=== PATIENT | female | born 1950 | race Caucasian/White ===

== ENCOUNTER 2018-05-19 18:33 | Emergency (ER) | payer MEDICARE, SELFPAY ==
[2018-05-19 18:37] VITALS: BP 123/86; PULSE 79; RESP 18; TEMP 36.1; O2SAT 97; BMI 25.4
--- NOTE | 2018-05-19 18:50 | DI.RAD.S_ITS ---
PROCEDURE: XR CHEST 1V INDICATIONS: chest pain TECHNIQUE: One view of the chest was acquired. COMPARISON: None. FINDINGS: Surgical changes and devices: None. Lungs and pleura: No pleural effusions or pneumothorax. Lungs are clear. Mediastinum: Mildly tortuous thoracic aorta is noted. Heart size is mildly enlarged. Bones and chest wall: No suspicious bony lesions. Overlying soft tissues appear unremarkable. IMPRESSION: No acute cardiopulmonary pathology. Dictated by: Ron Patiño M.D. on 05/19/2018 at 19:03 Approved by: Ron Patiño M.D. on 05/19/2018 at 19:04
--- NOTE | 2018-05-19 19:01 | ED_ITS ---
HPI - Chest Pain General Chief Complaint: Chest Pain Stated Complaint: PRESSURE IN CHEST JAW FELT DIFFRENT Time Seen by Provider: 05/19/18 18:59 Source: patient Mode of arrival: ambulatory Limitations: no limitations History of Present Illness HPI narrative: The patient was working on a computer about 2:30 p.m. today when she developed central sternal chest tightness that radiated up to her throat. She felt like someone was standing on her chest. She has no history of CAD or GERD. She took an [place] and lie down in bed. Symptoms resolved after about 30 min. Upon arrival she has no chest pain, or dyspnea. She had no palpitations at that time. She has no history of CAD. She had a cardiology evaluation August 2017 that was apparently normal. She has no history of arrhythmia. She denies hypertension, hyperlipidemia or diabetes. She is not a smoker. She has not been ill. Related Data Home Medications Medication Instructions Recorded Confirmed amitriptyline 25 mg PO BID 05/19/18 05/19/18 sumatriptan succinate [Imitrex] 25 mg PO Q2-4H PRN 05/19/18 05/19/18 topiramate [Topamax] 25 mg PO DAILY 05/19/18 05/19/18 verapamil 40 mg PO BID 05/19/18 05/19/18 Allergies Allergy/AdvReac Type Severity Reaction Status Date / Time No Known Drug Allergies Allergy Verified 05/19/18 18:42 Review of Systems Review of Systems All systems reviewed & are unremarkable except as noted in HPI and below Constitutional Denies chills, Denies fever(s), Denies lethargy and Denies weakness ENT Ears, Nose, Mouth, and Throat: Denies sore throat and Denies throat swelling Cardiovascular Reports chest pain, Denies diaphoresis, Denies syncope, Denies edema, Denies lightheadedness, Denies palpitations and Denies dyspnea Respiratory Denies cough, Denies dyspnea and Denies wheezing Gastrointestinal Gastrointestinal: Denies abdominal pain, Denies change in bowel habits, Denies diarrhea, Denies nausea and Denies vomiting Musculoskeletal Denies back pain, Denies muscle weakness, Denies numbness and Denies tingling Integumentary/Breasts Denies erythema, Denies rash and Denies wounds Neurologic Denies syncope, Denies numbness, Denies tingling and Denies weakness Endocrine Denies palpitations Allergic/Immunologic Denies throat swelling and Denies wheezing PFSH Medical History Migraine headache (Acute) Social History Smoking Status: Never smoker Exam Initial Vital Signs Initial Vital Signs: Vital Signs Temperature 97.0 F L 05/19/18 18:37 Pulse Rate 79 05/19/18 18:37 Respiratory Rate 18 05/19/18 18:37 Blood Pressure 123/86 05/19/18 18:37 Pulse Oximetry 97 05/19/18 18:37 Const General: cooperative, healthy appearing, comfortable and well developed Nutritional Appearance: well nourished Orientation: alert, awake and oriented x3 HENMT Head: normocephalic and atraumatic Mouth: oral mucosae normal and moist mucous membranes Throat: posterior oropharynx normal Eyes Conjunctivae: conjunctivae normal Neck Neck: No JVD Chest Chest: normal palpation of entire chest wall Resp Effort & Inspection: normal respiratory effort, able to speak in complete sentences, no respiratory distress and no use of accessory muscles Auscultation: clear to auscultation bilaterally, no rales, no rhonchi and no wheezes Cardio Rate: regular rate Rhythm: regular rhythm Heart Sounds: S1 normal, S2 normal, no click, no gallops, no murmurs and no rubs Pulses: normal peripheral pulses GI Inspection: non-distended Palpation: soft, no hepatosplenomegaly, No guarding, No pulsatile mass and No tender Auscultation: normal bowel sounds Back/Spine/Pelvis Back: normal to inspection and No back tenderness Skin General: no rashes or lesions noted and No erythema Neuro General: alert, oriented x3, gait normal and no focal motor deficits Speech: speech normal Extrem General: full ROM, no clubbing, cyanosis or edema, no pedal edema and no calf tenderness Psych Appearance: well kempt Mental Status: mental status grossly normal Attitude: cooperative Thought Content: normal and suicidality Judgment: judgment good Course Orders Ordered: ED Orders 05/19/18 18:50 XR chest 1V Stat EKG-12 Lead Stat 05/19/18 19:05 Complete Blood Count AUTO DIFF Stat Comprehensive Metabolic Panel Stat D Dimer Stat Lipase Stat Partial Thromboplastin Time Stat Prothrombin Time INR Stat Troponin & CK Cardiac Panel Stat Discontinued Medications Aspirin (Aspirin Chew) 324 mg PO NOW ONE Stop: 05/19/18 19:11 Last Admin: 05/19/18 19:13 Dose: 324 mg Vital Signs - 8 hr 05/19/18 18:37 05/19/18 19:39 05/19/18 20:00 Temperature 97.0 F L Pulse Rate 79 70 73 Respiratory Rate 18 17 12 Blood Pressure 123/86 Blood Pressure [Left Arm] 123/85 121/97 H Pulse Oximetry 97 100 100 05/19/18 20:26 Temperature Pulse Rate 76 Respiratory Rate 16 Blood Pressure 121/97 H Blood Pressure [Left Arm] Pulse Oximetry 99 MDM - Chest Pain Lab Data Attestation: I reviewed the patient's lab results. Result diagrams: 05/19/18 19:05 05/19/18 19:05 Lab Results 05/19/18 05/19/18 05/19/18 Range/Units 19:05 19:05 19:05 WBC 6.1 (4.5-11.0) X10^3/uL RBC 4.90 (4.0-5.2) X10^6/uL Hgb 14.9 (12.0-16.0) g/dL Hct 43.0 (36-46) % MCV 87.9 (80-100) fL MCH 30.3 (26-34) PG MCHC 34.5 (30-36) % RDW 12.8 (11.6-14.8) % Plt Count 155 (150-400) X10^3/uL Neut % (Auto) 66.4 (50-75) % Lymph % (Auto) 25.7 (25-40) % [place] % (Auto) 6.0 (3-14) % Eos % (Auto) 1.3 L (2-4) % Baso % (Auto) 0.6 (0-2) % Neut # (Auto) 4000 (8827-1999) /uL PT 12.0 (10.1-12.7) SECONDS INR 1.1 (0.9-1.3) APTT 31 (26.4-36.2) SECONDS D-Dimer < 200 (<230) ng/mL Sodium 146 H (137-145) mmol/L Potassium 3.5 (3.4-5.1) mmol/L Chloride 107 (98-107) mmol/L Carbon Dioxide 29 (22-32) mmol/L BUN 20 H (7-17) mg/dL Creatinine 0.80 (0.52-1.04) mg/dL Estimated GFR > 60.0 (>60) mL/min BUN/Creatinine Ratio 25.0 H (6-22) Glucose 87 (80-110) mg/dL Calcium 9.3 (8.4-10.2) mg/dL Total Bilirubin 0.5 (0.2-1.3) mg/dL AST 28 (14-36) IU/L ALT 31 (9-52) IU/L Alkaline Phosphatase 73 (38-126) U/L Total Creatine Kinase 37 (30-135) U/L Troponin I < 0.012 (0.01-0.034) ng/mL Total Protein 7.3 (6.3-8.2) g/dL Albumin 4.5 (3.5-5.0) g/dL Globulin 2.8 (1.7-4.1) g/dL Albumin/Globulin Ratio 1.6 (1.0-2.8) Lipase 39 (23-300) U/L 05/19/18 Range/Units 19:05 WBC (4.5-11.0) X10^3/uL RBC (4.0-5.2) X10^6/uL Hgb (12.0-16.0) g/dL Hct (36-46) % MCV (80-100) fL MCH (26-34) PG MCHC (30-36) % RDW (11.6-14.8) % Plt Count (150-400) X10^3/uL Neut % (Auto) (50-75) % Lymph % (Auto) (25-40) % [place] % (Auto) (3-14) % Eos % (Auto) (2-4) % Baso % (Auto) (0-2) % Neut # (Auto) (8760-0682) /uL PT (10.1-12.7) SECONDS INR (0.9-1.3) APTT (26.4-36.2) SECONDS D-Dimer Cancelled (<230) ng/mL Sodium (137-145) mmol/L Potassium (3.4-5.1) mmol/L Chloride (98-107) mmol/L Carbon Dioxide (22-32) mmol/L BUN (7-17) mg/dL Creatinine (0.52-1.04) mg/dL Estimated GFR (>60) mL/min BUN/Creatinine Ratio (6-22) Glucose (80-110) mg/dL Calcium (8.4-10.2) mg/dL Total Bilirubin (0.2-1.3) mg/dL AST (14-36) IU/L ALT (9-52) IU/L Alkaline Phosphatase (38-126) U/L Total Creatine Kinase (30-135) U/L Troponin I (0.01-0.034) ng/mL Total Protein (6.3-8.2) g/dL Albumin (3.5-5.0) g/dL Globulin (1.7-4.1) g/dL Albumin/Globulin Ratio (1.0-2.8) Lipase (23-300) U/L Imaging Data Chest x-ray: Attestation: I personally reviewed and interpreted this imaging study as follows: Radiologist's impression: Normal. ECG Data Attestation: I personally reviewed and interpreted this ECG as follows: (Normal sinus rhythm rate 77 bpm. Incomplete RBBB. Borderline left axis deviation. No ectopy. Normal intervals. No acute ST T wave changes.) MDM Narrative Medical decision making narrative: The patient has been asymptomatic since arrival. There is no evidence of an acute cardiac event, although her history is concerning. She will be started on aspirin and referred to Cardiology. Discharge Plan Departure Patient Disposition: Home Clinical Impression: Chest pain Discharge Date/Time: 05/19/18 20:31 Interventions: ED Discharge Assessment Last Done: 05/19/18 20:26 Instructions: DI for Chest Pain Activity Restrictions/Additional Instructions: Take baby aspirin, 1 daily. I will give you contact information for Dr. Kirkland , cardiology. Call for an appointment. Be sure you notify his office to obtain her prior cardiology records. Return here for worsening chest pain, problems breathing, or feeling weak and dizzy Prescriptions: No Action verapamil 40 mg Tablet 40 mg PO BID RF: 0 topiramate [Topamax] 25 mg Tablet 25 mg PO DAILY RF: 0 amitriptyline 25 mg Tablet 25 mg PO BID RF: 0 sumatriptan succinate [Imitrex] 25 mg Tablet 25 mg PO Q2-4H PRN (Reason: Headache) RF: 0 Referrals: Tim Kirkland MD [Physician] -
[2018-05-19 19:13] LABS: Add Manual Diff / Slide Review NO; Basophils Percent Auto 0.6 % (0-2); Eosinophils Percent Auto 1.3 % (2-4); Hemoglobin 14.9 g/dL (12.0-16.0); Lymphocytes Percent Auto 25.7 % (25-40); Mean Corpuscular HGB Conc 34.5 % (30-36); Mean Corpuscular Hemoglobin 30.3 PG (26-34); Mean Corpuscular Volume 87.9 fL (80-100); Neutrophils Absolute Auto 4000 /uL (3000-5900); Neutrophils Percent Auto 66.4 % (50-75); Platelet Count 155 X10^3/uL (150-400); Red Cell Distribution Width 12.8 % (11.6-14.8); White Blood Cell Count 6.1 X10^3/uL (4.5-11.0)
[2018-05-19] MEDS: ASPIRIN 81 MG TAB 324 MG PO (19:13)
[2018-05-19 19:24] LABS: INR 1.1 (0.9-1.3)
[2018-05-19 19:25] LABS: Alanine Aminotransferase 31 IU/L (9-52); Albumin 4.5 g/dL (3.5-5.0); Albumin Globulin Ratio 1.6 (1.0-2.8); Alkaline Phosphatase 73 U/L (38-126); Aspartate Aminotransferase 28 IU/L (14-36); Bilirubin Total 0.5 mg/dL (0.2-1.3); Blood Urea Nitrogen 20 mg/dL (7-17); Calcium 9.3 mg/dL (8.4-10.2); Carbon Dioxide 29 mmol/L (22-32); Chloride 107 mmol/L (98-107); Creatine Kinase 37 U/L (30-135); Estimated Glomerular Filt Rate > 60.0 mL/min (>60); Globulin 2.8 g/dL (1.7-4.1); Glucose 87 mg/dL (80-110); HEMOLYSIS < 15 (0-50); Lipase 39 U/L (23-300); Potassium 3.5 mmol/L (3.4-5.1); Sodium 146 mmol/L (137-145); Total Protein 7.3 g/dL (6.3-8.2)
[2018-05-19 19:27] LABS: D Dimer < 200 ng/mL (<230); PTT Partial Thromboplastin Tim 31 SECONDS (26.4-36.2)
[2018-05-19 19:36] LABS: Troponin I < 0.012 ng/mL (0.01-0.034)
[2018-05-19 19:39] VITALS: BP 123/85; PULSE 70; RESP 17; O2SAT 100
[2018-05-19 20:00] VITALS: BP 121/97; PULSE 73; RESP 12; O2SAT 100
[2018-05-19 20:26] VITALS: BP 121/97; PULSE 76; RESP 16; O2SAT 99
== END 2018-05-19 20:31 | disposition home or self-care (01) ==
PROVIDERS: Emergency Provider Emergency Medicine
DX: R07.89 Other chest pain (principal)
CPT/HCPCS: 36591; 71045; 80053; 82550; 82553; 83690; 84484; 85025; 85379; 85610; 85730; 93005; 93010; 99282; 99285

== ENCOUNTER → 2018-10-04 14:53 | Outpatient (CLI) | payer MEDICARE, SELFPAY ==
--- NOTE | 2018-10-04 | DI.ECHO.S_ITS ---
[facility]---------+ [facility] +---------+ : : [address] [place] [address] : : : : [id number] : : : : Phone: [phone]+ Echocardiogram Report + + :Name: MARYAM YAO Study Date: 10/04/2018 Height: 64 in : :[facility] Weight: 152 lb : : Gender: Female BSA: 1.7 m2 : :: 1950 Age: 68 yrs BP: 128/86 mmHg: :Reason For Study: Mitral Valve- Prolapse : :Ordering Physician: Tim : :Isael Performed By: Carol Manzano : :Referring: Laura Cagle : + + Interpretation Summary The left ventricle is normal in size. The ejection fraction is estimated to be 60-65%. The right ventricle is normal in size and function. There is borderline bileaflets mitral valve prolapse. There is mild to moderate mitral regurgitation. Procedure: A two-dimensional transthoracic echocardiogram with color flow and Doppler was performed. The study quality was technically adequate. There is no prior echocardiogram noted for this patient. The patient was in normal sinus rhythm during the exam. Left Ventricle: There is mild proximal septal thickening noted. The left ventricle is normal in size. There is normal left ventricular wall thickness. There is no echo evidence for significant left ventricular outflow tract obstruction. There is no ventricular septal defect visualized. There is no thrombus. The ejection fraction is estimated to be 60-65%. There are no focal wall motion abnormalities. Diastolic parameters suggest a relaxation abnormality of the left ventricle, consistent with probable normal filling pressures. Right Ventricle: The right ventricle is normal in size and function. Atria: Both atria are normal in size. There is no Doppler evidence for an interatrial shunt. Mitral Valve: The mitral valve leaflets appear mildly thickened, but open well. There is borderline mitral valve prolapse. There is prolapse of the anterior mitral valve leaflet. There is prolapse of the posterior mitral valve leaflet(s). There is mild to moderate mitral regurgitation. There are multiple regurgitant jets present. Aortic Valve: The aortic valve is trileaflet. The aortic valve opens well. There is no aortic valve stenosis. There is trace aortic regurgitation. Tricuspid Valve: The tricuspid valve is normal in structure and function. The right ventricular systolic pressure is estimated to be at least 20 mmHg based on an estimated right atrial pressure of 3 mm Hg. There is trace tricuspid regurgitation. Pulmonic Valve: The pulmonic valve leaflets are thin and pliable; valve motion is normal. There is mild pulmonic regurgitation. Great Vessels: The aortic root is normal size. The ascending aorta is mildly enlarged. The aortic arch is mildly enlarged. The IVC is of normal diameter and collapses greater than 50% with a sniff. This suggests a low right atrial pressure of 3 mm Hg. Pericardium/ Pleura There is a trivial pericardial effusion noted. There is an anterior echo-free space consistent with a fat pad. There are no echocardiographic indications of cardiac tamponade. MMode/2D Measurements & Calculations LVIDd: 4.2 cm LVOT diam: 1.9 cm LVIDs: 2.4 cm Ao root diam: 3.4 cm FS: 43.9 % Aortic Jxn: 3.0 cm IVSd: 1.0 cm asc Aorta Diam: 3.5 cm LVPWd: 0.89 cm Ao Arch Diam (Prox Trans): 3.3 cm LV paz. diameter/BSA (cm/m^2): 2.4 LV sys. diameter/BSA (cm/m^2): 1.4 LA A2 area: 17.7 cm2 RA long axis: 4.4 cm LA A4 area: 17.4 cm2 RA area: 13.5 cm2 LA length (vol): 4.8 cm RA vol: 35.7 ml LA vol: 54.0 ml RA : 20.5 ml/m2 LA vol index: 31.0 ml/m2 IVC diam: 1.2 cm RVD1 (basal): 3.6 cm RVD2 (mid): 2.2 cm TAPSE: 2.5 cm Doppler Measurements & Calculations Ao V2 max: 142.1 cm/sec LVOT Max [place]: 98.2 cm/sec Ao V2 mean: 105.6 cm/sec LV V1 max P.9 mmHg Ao max P.1 mmHg LV V1 VTI: 21.5 cm Ao mean P.8 mmHg BRONSON(I,D): 2.0 cm2 Ao V2 VTI: 29.7 cm BRONSON(V,D): 1.9 cm2 sev ratio: 0.73 BRONSON indexed to BSA (cm^2/m^2): 1.2 AI P1/2t: 728.6 msec AI dec slope: 142.6 cm/sec2 MV E max wayne: 60.9 cm/sec TR max wayne: 204.7 cm/sec MV A max wayne: 91.0 cm/sec TR max P.8 mmHg MV E/A: 0.67 PA V2 max: 52.4 cm/sec Med Peak E' Wayne: 4.8 cm/sec PA V2 mean: 39.8 cm/sec E/E' med: 12.6 PA mean P.69 mmHg Lat Peak E' Wayne: 3.9 cm/sec PA Accel Time: 0.14 sec E/E' lat: 15.6 E/e' average: 14.1 MV dec time: 0.32 sec MV P1/2t: 93.0 msec MV P1/2t max wayne: 61.0 cm/sec SV(LVOT): 60.3 ml MVA(P1/2t): 2.4 cm2 Reading Physician:BRANDON
== END ==
PROVIDERS: PCP Nurse Practitioner Family; Visit Provider Internal Medicine Cardiovascular Disease
DX: I34.1 Nonrheumatic mitral (valve) prolapse (principal); I34.0 Nonrheumatic mitral (valve) insufficiency
CPT/HCPCS: 93306

== ENCOUNTER → 2019-06-18 11:03 | Outpatient (CLI) | payer MEDICARE, SELFPAY | PROVIDERS: PCP Nurse Practitioner Family; Visit Provider Obstetrics & Gynecology | DX: R30.0 Dysuria (principal) | CPT/HCPCS: 87077; 87086; 87186 ==

== ENCOUNTER → 2019-10-02 12:26 | Outpatient (CLI) | payer MEDICARE, SELFPAY ==
[2019-10-03 14:44] LABS: Strep Grp B PCR NEG for Grp B Strep
== END ==
PROVIDERS: PCP Nurse Practitioner Family; Visit Provider Obstetrics & Gynecology
DX: N89.8 Other specified noninflammatory disorders of vagina (principal); N95.1 Menopausal and female climacteric states
CPT/HCPCS: 87070; 87205; 87480; 87510; 87653; 87660

== ENCOUNTER → 2019-11-15 13:35 | Outpatient (CLI) | payer MEDICARE, SELFPAY ==
--- NOTE | 2019-11-15 | DI.US.S_ITS ---
PROCEDURE: US SOFT TISSUE HEAD AND NECK INDICATIONS: ENLARGED LYMPH NODES TECHNIQUE: Real-time scanning was performed of the neck region of interest, with image documentation. COMPARISON: None. FINDINGS: Palpable abnormality corresponds to a solid, mildly hypoechoic mass adjacent to the carotid artery measuring 1.1 x 0.6 x 0.9 cm. No definite normal lymph node seen. IMPRESSION: Solid mass adjacent to the carotid artery corresponding to the palpable abnormality which does not have appearance suggesting a normal lymph node. Carotid body tumor cannot be excluded. Recommend contrast enhanced neck CT for further assessment. Dictated by: Kev BELL Interpreted: Lady Guillermo MD on 11/15/2019 at 16:54 Approved by: Bruce Rodriguez M.D. on 11/18/2019 at 15:58
== END ==
PROVIDERS: PCP Family Medicine; Referring Provider Family Medicine; Visit Provider Family Medicine
DX: R59.9 Enlarged lymph nodes, unspecified (principal)
CPT/HCPCS: 76536

== ENCOUNTER → 2020-02-12 10:23 | Outpatient (CLI) | payer MEDICARE, SELFPAY ==
--- NOTE | 2020-02-12 | DI.CT.S_ITS ---
PROCEDURE: CT SOFT TISSUE NECK W CON INDICATIONS: Localized swelling, mass and lump, neck TECHNIQUE: After the administration of intravenous contrast, 3.0 mm axial sections acquired from the sella to the aortic arch. Additional oblique axial 3.0 mm sections acquired through the pharynx. 3 mm thick coronal and sagittal reformats were generated. For radiation dose reduction, the following was used: automated exposure control. COMPARISON: [facility], SOFT TISSUE HEAD AND NECK, 11/15/2019, 14:08. FINDINGS: Image quality: Excellent. Lymph nodes: No enlarged lymph nodes seen throughout the neck. Vessels: Visualized vasculature appears patent. Neck spaces: Scrutiny is given to the left carotid bifurcation, and the site of the previously seen abnormality. No CT correlate is found. No other masses can be seen within this region. The oropharynx, nasopharynx, and pharynx demonstrate no mucosal lesions. The vocal cords, false vocal cords, pyriform sinuses, epiglottis, vallecula, and tongue base all appear normal. Extramucosal spaces appear unremarkable. Glands: The parotid and submandibular glands appear normal. Thyroid gland demonstrates no significant CT abnormality. Miscellaneous: Visualized brain and orbits appear normal. Lung apices appear clear. Superficial soft tissues appear normal. Bones: No suspicious bony lesions. Visualized sinuses and mastoids appear unremarkable. Degenerative changes are seen, which are most prominent at the C3-C4 level. IMPRESSION: No left carotid bifurcation lesion can be seen. No other masses are seen within this region. Dictated by: Melo Funez M.D. on 02/12/2020 at 10:28 Approved by: Melo Funez M.D. on 02/12/2020 at 10:31
== END ==
PROVIDERS: PCP Family Medicine; Referring Provider Family Medicine; Visit Provider Family Medicine
DX: R22.1 Localized swelling, mass and lump, neck (principal)
CPT/HCPCS: 70491; Q9967

== ENCOUNTER → 2020-09-22 09:01 | Outpatient (CLI) | payer MEDICARE, SELFPAY ==
--- NOTE | 2020-09-22 | DI.ECHO.S_ITS ---
[place] +---------+ [facility] +---------+ : : [address] : [place] [address] : : : : [id number] : : : : Phone: [phone]+ Echocardiogram Report + + :Name: MARYAM YAO Study Date: 09/22/2020 Height: 64 in : :[facility] Weight: 147 lb : : Gender: Female BSA: 1.7 m2 : :: 1950 Age: 70 yrs BP: 136/96 mmHg: :Reason For Study: MITRAL VALVE PROLAPSE : :Ordering Physician: NANETTE, : :AMY Performed By: Danielle Sandoval : :Referring: AMY FITZPATRICK : + + Interpretation Summary The left ventricle is normal in size. The ejection fraction is estimated to be 60-65%. There has been no significant change in LVEF since the previous exam. The right ventricle is normal in size and function. There is borderline mitral valve prolapse. There is prolapse of the anterior mitral valve leaflet. There is prolapse of the posterior mitral valve leaflet (s). There is mild to moderate mitral regurgitation. Compared to the prior echo study, there has been no change in the severity of mitral regurgitation. The aortic arch is mildly enlarged. 3.5 cm in diameter. Previously it was 3.3 cm. The IVC is of normal diameter and collapses greater than 50% with a sniff. This suggests a low right atrial pressure of 3 mm Hg. Procedure: A two-dimensional transthoracic echocardiogram with color flow and Doppler was performed. The study quality was technically adequate. Comparison is made with the echocardiogram of 10/04/2018. The patient was in normal sinus rhythm during the exam. Left Ventricle: The left ventricle is normal in size. Proximal septal thickening is noted. There is no echo evidence for significant left ventricular outflow tract obstruction. There is no thrombus. The ejection fraction is estimated to be 60-65%. There has been no significant change since the previous exam. There are no focal wall motion abnormalities. Diastolic parameters suggest a relaxation abnormality of the left ventricle, consistent with probable normal filling pressures. Right Ventricle: The right ventricle is normal in size and function. Atria: Both atria are normal in size. Both atria have remained unchanged in size since the prior echo exam. There is no Doppler evidence for an interatrial shunt. Mitral Valve: There is borderline mitral valve prolapse. There is prolapse of the anterior mitral valve leaflet. There is prolapse of the posterior mitral valve leaflet(s). There is mild to moderate mitral regurgitation. Compared to the prior echo study, there has been no change in the severity of mitral regurgitation. Aortic Valve: The aortic valve is trileaflet. The aortic valve opens well. There is no aortic valve stenosis. There is trace aortic regurgitation. Tricuspid Valve: The tricuspid valve is normal in structure and function. There is trace tricuspid regurgitation. The right ventricular systolic pressure is estimated to be at least 22 mmHg based on an estimated right atrial pressure of 3 mm Hg. Pulmonic Valve: The pulmonic valve leaflets are thin and pliable; valve motion is normal. There is trace pulmonic regurgitation. Great Vessels: The aortic root is normal size. The ascending aorta is at the upper limits of normal in size. The aortic arch is mildly enlarged. The IVC is of normal diameter and collapses greater than 50% with a sniff. This suggests a low right atrial pressure of 3 mm Hg. Pericardium/ Pleura There is an anterior echo-free space consistent with a fat pad. There is no pericardial effusion. There is no pleural effusion. MMode/2D Measurements & Calculations LVIDd: 4.2 cm LVOT diam: 2.0 cm LVIDs: 2.9 cm Ao root diam: 3.3 cm FS: 30.6 % asc Aorta Diam: 3.4 cm EPSS: 1.5 cm Ao Arch Diam (Prox Trans): 3.5 cm IVSd: 0.68 cm LVPWd: 0.94 cm LV paz. diameter/BSA (cm/m^2): 2.4 LV sys. diameter/BSA (cm/m^2): 1.7 LA A2 area: 16.6 cm2 RA long axis: 4.8 cm LA A4 area: 19.5 cm2 RA area: 17.1 cm2 LA length (vol): 5.7 cm RA vol: 51.5 ml LA vol: 48.2 ml RA : 30.0 ml/m2 LA vol index: 28.1 ml/m2 IVC diam: 1.2 cm RVD1 (basal): 3.1 cm TAPSE: 2.1 cm Doppler Measurements & Calculations Ao V2 max: 132.1 cm/sec LVOT Max Wayne: 111.1 cm/sec Ao V2 mean: 90.1 cm/sec LV V1 max P.9 mmHg Ao max P.0 mmHg LV V1 VTI: 23.3 cm Ao mean P.7 mmHg BRONSON(I,D): 2.9 cm2 Ao V2 VTI: 24.9 cm BRONSON(V,D): 2.6 cm2 sev ratio: 0.94 BRONSON indexed to BSA (cm^2/m^2): 1.7 MV E max wayne: 62.9 cm/sec TR max wayne: 221.1 cm/sec MV A max wayne: 95.6 cm/sec TR max P.6 mmHg MV E/A: 0.66 PA V2 max: 64.0 cm/sec Med Peak E' Wayne: 4.6 cm/sec PA V2 mean: 43.5 cm/sec E/E' med: 13.7 PA mean P.86 mmHg Lat Peak E' Wayne: 4.5 cm/sec PA pr(Accel): 24.2 mmHg E/E' lat: 14.1 E/e' average: 13.9 MV dec time: 0.31 sec SV(LVOT): 72.0 ml Reading Physician:02:59 PM
== END ==
PROVIDERS: PCP Family Medicine; Referring Provider Internal Medicine Cardiovascular Disease; Visit Provider Internal Medicine Cardiovascular Disease
DX: I34.1 Nonrheumatic mitral (valve) prolapse (principal); I34.0 Nonrheumatic mitral (valve) insufficiency; I77.89 Other specified disorders of arteries and arterioles
CPT/HCPCS: 93306